=== PATIENT | male | born 1990 | race Caucasian/White ===

== ENCOUNTER 2017-03-20 17:50 | Emergency (ER) | payer BC, OTHER ==
[~2017-03-20 17:50] MED LIST: LORTA10 PO; Z.0.NO CURRENT MEDS
[2017-03-20 17:54] VITALS: BP 143/71; PULSE 79; RESP 20; TEMP 97.9; O2SAT 97
[2017-03-20] MEDS ORDERED: ASPI325T PO (18:10)
--- NOTE | 2017-03-20 18:17 | PD ---
HPI Chief Complaint: ENT Complaint Time Seen by Provider: 18:15 Travel History International Travel<30 days: No Contact w/Intl Traveler<30days: No Traveled to known affect area: No History of Present Illness HPI 26-year-old male presents to the emergency room of sore throat and left-sided lymph node swelling for the past 3 days. Patient is deaf and was offered an watch engineer but preferred to use pen and paper. Pain is worsened with swallowing. No sick contacts. Reports occasional cough and very slight left ear pain. He has been taking aspirin for pain but not any other medications. Patient denies fever, chills, nausea, vomiting, or any other upper respiratory symptoms. Denies chronic medical conditions or daily medications. PFSH Past Medical History Diminished Hearing: Yes (DEAF BILATERALLY) Social History Alcohol Use: No Tobacco Use: No Substance Use: No Allergies-Medications (Allergen,Severity, Reaction): Coded Allergies: Ceclor (Verified Allergy, Mild, 03/20/17) Reported Meds & Prescriptions Reported Meds & Active Scripts Active Amoxicillin 500 Mg Tab 500 Mg PO BID 10 Days Reported Aspirin 325 Mg Tab 325 Mg PO ONCE Review of Systems Except as stated in HPI: all other systems reviewed are Neg Physical Exam Narrative GENERAL: Well-nourished, well-developed male in no acute distress. Afebrile. Ambulatory.. SKIN: Focused skin assessment warm/dry. HEAD: Normocephalic. EYES: No scleral icterus. No injection or drainage. NECK: Supple, trachea midline. No JVD or lymphadenopathy. THROAT: Moderate pharyngeal injection and exudates. No tonsillar hypertrophy. Airway is patent. EARS: Bilateral cerumen impaction. CARDIOVASCULAR: Regular rate and rhythm without murmurs, gallops, or rubs. RESPIRATORY: Breath sounds equal bilaterally. No accessory muscle use. Data Data Last Documented VS Vital Signs Date Time Temp Pulse Resp B/P Pulse Ox O2 Delivery O2 Flow Rate FiO2 03/20/17 17:54 97.9 79 20 143/71 97 Orders Group A Rapid Strep Screen (03/20/17 18:18) [facility] Medical Decision Making Medical Screen Exam Complete: Yes Emergency Medical Condition: Yes Medical Record Reviewed: Yes Differential Diagnosis Pharyngitis, strep, upper respiratory infection Narrative Course 26-year-old male presents to the emergency room for evaluation of sore throat for the past 3 days. Patient is deaf but declined watch engineer preferring to use pen and paper. Patient denies history of fevers. Vital signs stable. Physical exam of the pharynx reveals moderate erythema and exudates with halitosis. Otherwise unremarkable. Rapid strep is positive. Patient discharged with prescription for amoxicillin. Told to follow up with a primary care physician and return for worsening symptoms. He understands and agrees to plan. Diagnosis Primary Impression: Acute streptococcal pharyngitis Referrals: Primary Care Physician Patient Instructions: General Instructions, Strep Throat (ED) Additional Instructions: Rest and drink plenty of fluids. Take amoxicillin as directed, until gone. You will feel better after a few days but be sure to finish the antibiotics. Take ibuprofen with food as directed, as needed for pain. Follow-up with a primary care physician. Return to the emergency room for worsening symptoms. Med/Other Pt SpecificInfo: Prescription(s) given Scripts Amoxicillin 500 Mg [id number] Mg PO BID 10 Days Ref 0 Prov:Contreras Grubbs MD 03/20/17 Disposition: 01 DISCHARGE HOME Condition: Stable Oksana Thomson Mar 20, 2017 18:17
[2017-03-20] MEDS ORDERED: AMOX500T PO (19:24)
[2017-03-20 20:24] VITALS: BP 129/72
== END 2017-03-20 20:24 | disposition home or self-care (01) ==
LOC: PHED 17:50
DX: J02.0 Streptococcal pharyngitis (principal); B95.0 Streptococcus, group A, as the cause of diseases classified elsewhere
CPT/HCPCS: 87880; 99283

== ENCOUNTER 2017-07-12 17:11 | Emergency (ER) | payer MEDICAID, OTHER ==
[~2017-07-12] VITALS: Ht 172.7 cm; Wt 61.0 kg
[~2017-07-12 17:11] MED LIST changes: +AMOX500T PO; +ASPI-183 PO; -LORTA10 PO; -Z.0.NO CURRENT MEDS
[2017-07-12 17:18] VITALS: BP 117/67; PULSE 69; RESP 16; TEMP 98; O2SAT 97
[2017-07-12 18:15] LABS: BLOOD, URINE NEG (NEG); GLUCOSE,URINE NEG (NEG); KETONE, URINE NEG (NEG); NITRITE,URINE NEG (NEG)
[2017-07-12 18:23] LABS: RBC, URINE 0-3 /hpf (0-3); SQUAMOUS EPITHELIAL CELL URINE 0-5 /hpf (0-5); URINE COLOR YELLOW (YELLW/STRAW)
[2017-07-12 18:24] LABS: COMMENT (UR) CULTURE INDICATED; CULTURE IF INDICATED CULTURE INDICATED
[2017-07-12] MEDS ORDERED: BACT800T5 PO (18:49)
--- NOTE | 2017-07-12 18:52 | PD ---
HPI . Dysuria Chief Complaint: Complaint Time Seen by Provider: 17:39 Travel History International Travel<30 days: No Contact w/Intl Traveler<30days: No Traveled to known affect area: No History of Present Illness HPI 27-year-old male patient presents emergency department for evaluation of dysuria that has been present for a couple days. Patient denies any fever, chills, malaise, chest pain, shortness breath. Patient denies any hematuria, penile discharge or new sexual partners. PFSH Past Medical History Medical History: Denies Significant Hx Diminished Hearing: Yes (DEAF BILATERALLY) Immunizations Current: Yes Tetanus Vaccination: > 5 Years Influenza Vaccination: No Past Surgical History Surgical History: No Previous Surgery Social History Alcohol Use: No Tobacco Use: No Substance Use: No Allergies-Medications (Allergen,Severity, Reaction): Coded Allergies: cefaclor (Unverified Allergy, Mild, 04/06/17) Reported Meds & Prescriptions Reported Meds & Active Scripts Active Bactrim DS (Sulfamethoxazole-Trimethoprim) 800-160 Mg Tab 1 Tab PO BID 3 Days Review of Systems Except as stated in HPI: all other systems reviewed are Neg Physical Exam Narrative GENERAL: Well-nourished, well-developed 27-year-old male patient in no acute distress. Nontoxic-appearing. SKIN: Focused skin assessment warm/dry. HEAD: Normocephalic. Atraumatic. EYES: No scleral icterus. No injection or drainage. NECK: Supple, trachea midline. No JVD or lymphadenopathy. CARDIOVASCULAR: Regular rate and rhythm without murmurs, gallops, or rubs. RESPIRATORY: Breath sounds equal bilaterally. No accessory muscle use. GASTROINTESTINAL: Abdomen soft, non-tender, nondistended. MUSCULOSKELETAL: No obvious deformity, ecchymosis, erythema, cyanosis, or edema. BACK: Nontender without obvious deformity. No CVA tenderness. Data Data Last Documented VS Vital Signs Date Time Temp Pulse Resp B/P (MAP) Pulse Ox O2 Delivery O2 Flow Rate FiO2 07/12/17 17:18 98.0 69 16 117/67 (84) 97 Orders Orders Urinalysis - C+S If Indicated (07/12/17 17:29) Urine Culture (07/12/17 18:00) Ed Discharge Order (07/12/17 18:52) Labs Laboratory Tests Test 07/12/17 18:00 Urine Color YELLOW Urine Turbidity CLEAR Urine pH 7.0 Urine Specific [place] 1.023 Urine Protein NEG mg/dL Urine Glucose (UA) NEG mg/dL Urine Ketones NEG mg/dL Urine Occult Blood NEG Urine Nitrite NEG Urine Bilirubin NEG Urine Leukocyte Esterase NEG Urine RBC 0-3 /hpf Urine WBC 9-14 /hpf Urine WBC Clumps FEW Urine Squamous Epithelial Cells 0-5 /hpf Urine Amorphous Sediment FEW Microscopic Urinalysis Comment CULTURE INDICATED MDM Medical Decision Making Medical Screen Exam Complete: Yes Emergency Medical Condition: Yes Differential Diagnosis Differential diagnoses include but not limited to UTI, dysuria, STI Narrative Course 27-year-old deaf male patient presents to the emergency department for evaluation of dysuria for a couple days. Patient communicated well through writing. No abdominal pain, nausea or vomiting. No hematuria, fever or chills. UA ordered and pending. UA shows WBC with a culture pending. Patient discharged from with prescriptions for Bactrim and instructions for supportive care and to follow up with primary care but otherwise return to the emergency department with any worsening condition. Laboratory Tests Test 07/12/17 18:00 Urine Color YELLOW Urine Turbidity CLEAR Urine pH 7.0 Urine Specific [place] 1.023 Urine Protein NEG mg/dL Urine Glucose (UA) NEG mg/dL Urine Ketones NEG mg/dL Urine Occult Blood NEG Urine Nitrite NEG Urine Bilirubin NEG Urine Leukocyte Esterase NEG Urine RBC 0-3 /hpf Urine WBC 9-14 /hpf Urine WBC Clumps FEW Urine Squamous Epithelial Cells 0-5 /hpf Urine Amorphous Sediment FEW Microscopic Urinalysis Comment CULTURE INDICATED Diagnosis Primary Impression: UTI (urinary tract infection) Qualified Codes: N39.0 - Urinary tract infection, site not specified Referrals: Primary Care Physician Patient Instructions: General Instructions, Urinary Tract Infection in Men (ED) Additional Instructions: Please return to emergency department if your symptoms return or worsen. Follow up with your primary care provider. Take medications as prescribed. [facility] Stay hydrated. Take ibuprofen and Tylenol as needed for pain or fever. Med/Other Pt SpecificInfo: Prescription(s) given Scripts Sulfamethoxazole-Trimethoprim (Bactrim DS) 800-160 Mg Tab 1 TAB PO BID for Infection for 3 Days, #6 TAB 0 Refills Prov: Stella Jimenez 07/12/17 Disposition: 01 DISCHARGE HOME Condition: Stable Stella Jimenez Jul 12, 2017 18:52
== END 2017-07-12 19:04 | disposition home or self-care (01) ==
LOC: PHEFT 17:11
DX: N39.0 Urinary tract infection, site not specified (principal); H91.93 Unspecified hearing loss, bilateral
CPT/HCPCS: 81001; 87086; 99283

== ENCOUNTER 2018-01-06 12:10 | Emergency (ER) | payer MEDICAID ==
[~2018-01-06] VITALS: Ht 175.3 cm; Wt 58.0 kg
[~2018-01-06 12:10] MED LIST changes: -AMOX500T PO; -ASPI-183 PO; +BACT800T5 PO
[2018-01-06 12:14] VITALS: BP 115/76; PULSE 95; RESP 16; TEMP 98.8; O2SAT 97
[2018-01-06] MEDS ORDERED: AZIT250T3 PO (12:37)
--- NOTE | 2018-01-06 12:37 | PD ---
HPI Chief Complaint: ENT Complaint Time Seen by Provider: 12:22 Travel History International Travel<30 days: No Contact w/Intl Traveler<30days: No Traveled to known affect area: No History of Present Illness HPI This is a 27-year-old male here with a sore throat 3 days. Patient is deaf. He was offered translation services but declined. He requested to communicate via pen and paper. He reports he has had a sore throat for 3 days. No difficulty swallowing. Subjective fever and no chills. Has had strep pharyngitis in the past with similar symptoms. Allergies to Ceclor. Symptom severity is moderate. No aggravating or alleviating factors. PFSH Past Medical History Medical History: Denies Significant Hx Diminished Hearing: Yes (DEAF BILATERALLY) Immunizations Current: Yes Social History Alcohol Use: No Tobacco Use: No Substance Use: No Allergies-Medications (Allergen,Severity, Reaction): Coded Allergies: cefaclor (Unverified Allergy, Mild, 01/06/18) Reported Meds & Prescriptions Reported Meds & Active Scripts Active No Active Prescriptions or Reported Medications Review of Systems Except as stated in HPI: all other systems reviewed are Neg General / Constitutional: Positive: Fever Eyes: No: Visual changes HENT: Positive: Sore Throat Cardiovascular: No: Chest Pain or Discomfort Respiratory: No: Shortness of Breath Gastrointestinal: No: Abdominal Pain Genitourinary: No: Dysuria Physical Exam Narrative GENERAL: Alert and well-appearing 27-year-old male SKIN: Warm and dry. HEAD: Normocephalic. EYES: No injection or drainage. ENT: Notable pharyngeal erythema with tonsillar hypertrophy and scant exudate. Uvula is midline. Airways patent. Normal phonation. NECK: Supple, trachea midline. Mild submandibular lymphadenopathy CARDIOVASCULAR: Regular rate and rhythm without murmurs, gallops, or rubs. RESPIRATORY: Breath sounds equal bilaterally. No accessory muscle use. Data Data Last Documented VS Vital Signs Date Time Temp Pulse Resp B/P (MAP) Pulse Ox O2 Delivery O2 Flow Rate FiO2 01/06/18 12:14 98.8 95 16 115/76 (89) 97 MDM Medical Decision Making Medical Screen Exam Complete: Yes Emergency Medical Condition: Yes Differential Diagnosis Strep pharyngitis, viral pharyngitis, URI Narrative Course This is a 27-year-old male with exudative tonsillitis. He will be treated with azithromycin. Diagnosis Primary Impression: Pharyngitis Qualified Codes: J02.9 - Acute pharyngitis, unspecified Referrals: Primary Care Physician Additional Instructions: Antibiotics as directed. Stay well hydrated by drinking plenty of fluid. Tylenol or ibuprofen for pain and fever Scripts Azithromycin (Azithromycin) 250 Mg Tab 250 MG PO DIRECTED for Infection, #6 TAB 0 Refills Take 2 tabs (500 mg) on day 1 then 1 tab daily x 4 days. Prov: Velvet Murcia 01/06/18 Disposition: 01 DISCHARGE HOME Condition: Stable Velvet Murcia January 06, 2018 12:37
== END 2018-01-06 12:52 | disposition home or self-care (01) ==
LOC: PHEFT 12:10
DX: J02.9 Acute pharyngitis, unspecified (principal); H91.93 Unspecified hearing loss, bilateral
CPT/HCPCS: 99283